=== PATIENT | male | born 1970 | race Caucasian/White ===

== ENCOUNTER 2018-03-21 18:43 | Emergency (ER) | payer SELFPAY ==
[~2018-03-21] VITALS: Ht 172.7 cm; Wt 64.9 kg
[2018-03-21 18:59] VITALS: BP 114/74
[2018-03-21] MEDS ORDERED: LIDOCAINE 2% 20 ML VIAL. ONE (19:24)
--- NOTE | 2018-03-21 19:24 | PHYS DOC ---
Past History Past Medical History: No Pertinent History Past Surgical History: No Surgical History Alcohol Use: None Drug Use: None Adult General Chief Complaint Chief Complaint: INSECT BITE HPI HPI 47-year-old male presents with concern for cellulitis and abscess on his left hip. He states he thought he had a bug bite about one week ago, that is just cannabinoid annoyance because his jeans rub against it. Yesterday, the patient noticed that the area started to have spreading redness and a performed. It is now 2-1/2 cm in diameter and there is a scab on the surface. He has not noticed any drainage. He is never had a skin infection in the past. No MRSA history. Denies fever or chills. Review of Systems Review of Systems Constitutional: Denies fever or chills [] Eyes: Denies change in visual acuity, redness, or eye pain [] HENT: Denies nasal congestion or sore throat [] Respiratory: Denies cough or shortness of breath [] Cardiovascular: No additional information not addressed in HPI [] GI: Denies abdominal pain, nausea, vomiting, bloody stools or diarrhea [] : Denies dysuria or hematuria [] Musculoskeletal: Denies back pain or joint pain [] Integument: Cellulitis and abscess left hip[] Neurologic: Denies headache, focal weakness or sensory changes [] Endocrine: Denies polyuria or polydipsia [] All other systems were reviewed and found to be within normal limits, except as documented in this note. Allergies Allergies Allergies Coded Allergies Type Severity Reaction Last Updated Verified No Known Drug Allergies 03/21/18 No Physical Exam Physical Exam Constitutional: Well developed, well nourished, no acute distress, non-toxic appearance. [] HENT: Normocephalic, atraumatic, bilateral external ears normal, oropharynx moist, no oral exudates, nose normal. [] Eyes: PERRLA, EOMI, conjunctiva normal, no discharge. [] Neck: Normal range of motion, no tenderness, supple, no stridor. [] Cardiovascular:Heart rate regular rhythm, no murmur [] Lungs & Thorax: Bilateral breath sounds clear to auscultation [] Abdomen: Bowel sounds normal, soft, no tenderness, no masses, no pulsatile masses. [] Skin: 2-1/2 cm cellulitis of the left anterior hip with small fluctuant center.[ ] Back: No tenderness, no CVA tenderness. [] Extremities: No tenderness, no cyanosis, no clubbing, ROM intact, no edema. [] Neurologic: Alert and oriented X 3, normal motor function, normal sensory function, no focal deficits noted. [] Psychologic: Affect normal, judgement normal, mood normal. [] Current Patient Data Vital Signs Vital Signs Date Time Temp Pulse Resp B/P (MAP) Pulse Ox O2 Delivery O2 Flow Rate FiO2 03/21/18 18:59 97.7 103 18 97 Room Air EKG EKG [] Radiology/Procedures Radiology/Procedures [] Course & Med Decision Making Course & Med Decision Making Pertinent Labs and Imaging studies reviewed. (See chart for details) I was able to squeeze the patient's abscess and had some spontaneous drainage. Wound culture was sent. We'll place him on Keflex for 7 days. First dose in the ED. He is stable for discharge. [] Dragon Disclaimer Dragon Disclaimer This electronic medical record was generated, in whole or in part, using a voice recognition dictation system. Departure Departure: Impression: Primary Impression: Cellulitis and abscess of left leg Disposition: HOME, SELF-CARE Condition: STABLE Referrals: PCP,NO (PCP) Patient Instructions: Cellulitis, Bsjp-[id number] Scripts Cephalexin (KEFLEX) 500 Mg Capsule 1 CAP PO TID for infection, #21 CAP Prov: LAVELL WHEELER DO 03/21/18 LAVELL WHEELER DO Mar 21, 2018 19:24
[2018-03-21] MEDS ORDERED: CEPH-264 PO (19:42)
[2018-03-21] MEDS ORDERED: CEPHALEXIN 250 MG CAPSULE PO ONE (19:45)
== END 2018-03-21 19:47 | disposition home or self-care (01) ==
LOC: ER 18:43
DX: L03.116 Cellulitis of left lower limb (principal); L02.416 Cutaneous abscess of left lower limb
CPT/HCPCS: 87070; 99283

== ENCOUNTER 2018-03-29 18:29 | Inpatient (IN) | payer SELFPAY ==
[~2018-03-29] VITALS: Ht 162.6 cm; Wt 60.4 kg
[~2018-03-29 18:29] MED LIST: CEPH-264 PO
--- NOTE | 2018-03-29 18:33 | ED.ADGEN ---
Past History Past Medical History: No Pertinent History, Asthma Past Surgical History: No Surgical History Alcohol Use: None Drug Use: None Adult General Chief Complaint Chief Complaint "....I was pati... getting....short of breath...maybe .... a cold... this .... morning... but.... now..............really bad....." [facility] HPI Patient is a 47 year old male who presents with above hx and complaints dyspnea and found to be hypoxic on ED check in. Patient has had episodes of asthma- like presentations in the past but none as severe as presentation tonight. Patient does smoke. No recent travel or specific ill contacts. 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 Patient on presentation having severe wheezing and nonproductive cough intercostal retractions and sats in the 80s on room air. Patient denies any history immunosuppression. Patient denies any current drug use but has remote history of polysubstance abuse. Review of Systems Review of Systems Constitutional: Complaints of fever and chills [] Eyes: Denies change in visual acuity, redness, or eye pain [] HENT: History of nasal congestion and drainage Respiratory: History of cough and wheezing Cardiovascular: No additional information not addressed in HPI [] GI: Denies abdominal pain, nausea, vomiting, bloody stools or diarrhea [] : Denies dysuria or hematuria [] Musculoskeletal: Denies back pain or joint pain [] Integument: Denies rash or skin lesions [] Neurologic: Denies headache, focal weakness or sensory changes [] Endocrine: Denies polyuria or polydipsia [] All other systems were reviewed and found to be within normal limits, except as documented in this note. Family History Family History Noncontributory Current Medications Current Medications Current Medications Medications (Trade) Dose Ordered Sig/Susanna Start Time Stop Time Status Last Admin Dose Admin Albuterol/ Ipratropium (Duoneb) 3 ml 1X ONCE 03/29/18 19:00 03/29/18 19:01 DC 03/29/18 19:23 3 ML Aspirin (Children'S Aspirin) 324 mg 1X ONCE 03/29/18 18:45 03/29/18 18:46 DC 03/29/18 19:06 324 MG Azithromycin (Zithromax) 500 mg 1X ONCE 03/29/18 19:00 03/29/18 19:01 DC 03/29/18 19:15 500 MG Enoxaparin Sodium (Lovenox 80mg Syringe) 64 mg 1X ONCE 03/29/18 19:30 03/29/18 19:33 DC 03/29/18 19:40 64 MG Lactated Ringer's 1,000 ml @ 100 mls/hr Q10H 03/29/18 18:35 03/30/18 04:34 DC 03/30/18 03:31 100 MLS/HR Magnesium Sulfate 50 ml @ 25 mls/hr 1X ONCE 03/29/18 18:45 03/29/18 20:44 DC 03/29/18 18:55 25 MLS/HR Methylprednisolone Sodium Succinate (SOLU-Medrol 125MG VIAL) 125 mg 1X ONCE 03/29/18 18:45 03/29/18 18:55 DC 03/29/18 18:44 125 MG Allergies Allergies Allergies Coded Allergies Type Severity Reaction Last Updated Verified I S O L A T I O N *CONTACT* Allergy Unknown 03/26/18 Yes NKMA Allergy Unknown 03/26/18 Yes Physical Exam Physical Exam Constitutional: Well developed, well nourished, in acute respiratory distress, non-toxic appearance. [] HENT: Normocephalic, atraumatic, bilateral external ears normal, oropharynx moist, mild injection of pharynx and postnasal drip, no oral exudates, nose swollen turbinates and clear rhinorrhea. Eyes: PERRLA, EOMI, conjunctiva normal, no discharge. [] Neck: Normal range of motion, no tenderness, supple, no stridor. [] Cardiovascular: Tachycardia Heart rate regular rhythm, no murmur [] Lungs & Thorax: Bilateral breath sounds equal at apexes with marked wheezing throughout on auscultation []does have intercostal retractions. Patient had tripod position. Abdomen: Bowel sounds normal, soft, no tenderness, no masses, no pulsatile masses. [] Skin: Warm, diaphoretic,, no erythema, no rash. [] Back: No tenderness, no CVA tenderness. [] Extremities: No tenderness, no cyanosis, no clubbing, ROM intact, no edema. [] Neurologic: Alert and oriented X 3, normal motor function, normal sensory function, no focal deficits noted. [] Psychologic: Affect anxious, judgement normal, mood normal. [] Current Patient Data Vital Signs Vital Signs Date Time Temp Pulse Resp B/P (MAP) Pulse Ox O2 Delivery O2 Flow Rate FiO2 03/29/18 19:30 108 27 116/75 (89) 95 Nasal Cannula 3.0 03/29/18 18:30 98.5 Lab Results Laboratory Tests Test 03/29/18 18:39 03/29/18 19:00 03/29/18 19:05 03/29/18 19:11 White Blood Count 13.1 x10^3/uL (4.0-11.0) H Red Blood Count 5.52 x10^6/uL (4.30-5.70) Hemoglobin 16.3 g/dL (13.0-17.5) Hematocrit 48.9 % (39.0-53.0) Mean Corpuscular Volume 89 fL (79-100) Mean Corpuscular Hemoglobin 30 pg (25-35) Mean Corpuscular Hemoglobin Concent 33 g/dL (31-37) Red Cell Distribution Width 14.7 % (11.5-14.5) H Platelet Count 248 x10^3/uL (140-400) Neutrophils (%) (Auto) 74 % (31-73) H Lymphocytes (%) (Auto) 13 % (24-48) L Monocytes (%) (Auto) 7 % (0-9) Eosinophils (%) (Auto) 7 % (0-3) H Basophils (%) (Auto) 0 % (0-3) Neutrophils # (Auto) 9.7 x10^3uL (1.8-7.7) H Lymphocytes # (Auto) 1.7 x10^3/uL (1.0-4.8) Monocytes # (Auto) 0.9 x10^3/uL (0.0-1.1) Eosinophils # (Auto) 0.8 x10^3/uL (0.0-0.7) H Basophils # (Auto) 0.0 x10^3/uL (0.0-0.2) Prothrombin Time 10.5 SEC (9.4-11.4) Prothrombin Time INR 1.1 (0.9-1.1) D-Dimer (Elizabeth) 0.60 mg/L (0.00-0.50) H Sodium Level 142 mmol/L (136-145) Potassium Level 3.7 mmol/L (3.5-5.1) Chloride Level 105 mmol/L (98-107) Carbon Dioxide Level 30 mmol/L (21-32) Anion Gap 7 (6-14) Blood Urea Nitrogen 17 mg/dL (8-26) Creatinine 1.0 mg/dL (0.7-1.3) Estimated GFR (Cockcroft-Gault) 80.4 Glucose Level 91 mg/dL (70-99) Calcium Level 9.0 mg/dL (8.5-10.1) Magnesium Level 2.2 mg/dL (1.8-2.4) Total Bilirubin 0.2 mg/dL (0.2-1.0) Direct Bilirubin 0.1 mg/dL (0.0-0.2) Aspartate Amino Transferase (AST) 12 U/L (15-37) L Alanine Aminotransferase (ALT) 20 U/L (16-63) Alkaline Phosphatase 40 U/L (46-116) L Creatine Kinase 73 U/L (39-308) Troponin I Quantitative < 0.017 ng/mL (0-0.055) WB-Uur-L-Type Natriuretic Peptide 11 pg/mL (0-124) Total Protein 8.2 g/dL (6.4-8.2) Albumin 3.8 g/dL (3.4-5.0) Lipase 181 U/L (73-393) Blood pH 7.36 (7.35-7.46) Blood Gas PCO2 44 mmHg (35-46) Blood Gas PO2 65 mmHg (80-100) L Blood Gas HCO3 25 mmol/L (21-28) Arterial Bld O2 Saturation (Calc) 91 % (92-99) L FiO2 32 % Group A Streptococcus Rapid Negative (NEGATIVE) Influenza Type A (Rapid) Negative (NEGATIVE) Influenza Type B (Rapid) Negative (NEGATIVE) EKG EKG My interpretation of EKG shows a sinus tachycardia 124 bpm. Does have some rightward axis. Some nonspecific anterior lateral strain pattern. No findings acute STEMI with contralateral changes. There is considerable baseline artifact due to respiratory distress.[] Radiology/Procedures Radiology/Procedures I interpretation of chest x-ray shows hyperexpansion. No significant loculation or infiltrate. See formal report when available[] Course & Med Decision Making Course & Med Decision Making Pertinent Labs and Imaging studies reviewed. (See chart for details). Discussed presentation, testing and treatment plan with Dr. Snider- Will admit for further treatment and evaluation. [] Final Impression Final Impression 1. Dyspnea- Hypoxia[]-Respiratory Failure 2. Asthma Exacerbation 3. Elevated D-dimer 0.60 4. Leukocytosis 13.1 5. Suspect Viral Syndrome Dragon Disclaimer Dragon Disclaimer This electronic medical record was generated, in whole or in part, using a voice recognition dictation system. Dragon Disclaimer This chart was dictated in whole or in part using Voice Recognition software in a busy, high-work load, and often noisy Emergency Department environment. It may contain unintended and wholly unrecognized errors or omissions. Discharge Summary Visit Information Final Diagnosis Problems Medical Problems: (1) Respiratory failure Status: Acute (2) Respiratory failure with hypoxia Status: Acute Brief Hospital Course Allergies Allergies Coded Allergies Type Severity Reaction Last Updated Verified I S O L A T I O N *CONTACT* Allergy Unknown 03/26/18 Yes NKMA Allergy Unknown 03/26/18 Yes Vital Signs Vital Signs Date Time Temp Pulse Resp B/P (MAP) Pulse Ox O2 Delivery O2 Flow Rate FiO2 03/29/18 19:30 108 27 116/75 (89) 95 Nasal Cannula 3.0 03/29/18 18:30 98.5 Lab Results Laboratory Tests Test 03/29/18 18:39 03/29/18 19:00 03/29/18 19:05 03/29/18 19:11 White Blood Count 13.1 x10^3/uL (4.0-11.0) Red Blood Count 5.52 x10^6/uL (4.30-5.70) Hemoglobin 16.3 g/dL (13.0-17.5) Hematocrit 48.9 % (39.0-53.0) Mean Corpuscular Volume 89 fL (79-100) Mean Corpuscular Hemoglobin 30 pg (25-35) Mean Corpuscular Hemoglobin Concent 33 g/dL (31-37) Red Cell Distribution Width 14.7 % (11.5-14.5) Platelet Count 248 x10^3/uL (140-400) Neutrophils (%) (Auto) 74 % (31-73) Lymphocytes (%) (Auto) 13 % (24-48) Monocytes (%) (Auto) 7 % (0-9) Eosinophils (%) (Auto) 7 % (0-3) Basophils (%) (Auto) 0 % (0-3) Neutrophils # (Auto) 9.7 x10^3uL (1.8-7.7) Lymphocytes # (Auto) 1.7 x10^3/uL (1.0-4.8) Monocytes # (Auto) 0.9 x10^3/uL (0.0-1.1) Eosinophils # (Auto) 0.8 x10^3/uL (0.0-0.7) Basophils # (Auto) 0.0 x10^3/uL (0.0-0.2) Prothrombin Time 10.5 SEC (9.4-11.4) Prothromb Time International Ratio 1.1 (0.9-1.1) D-Dimer (Elizabeth) 0.60 mg/L (0.00-0.50) Sodium Level 142 mmol/L (136-145) Potassium Level 3.7 mmol/L (3.5-5.1) Chloride Level 105 mmol/L (98-107) Carbon Dioxide Level 30 mmol/L (21-32) Anion Gap 7 (6-14) Blood Urea Nitrogen 17 mg/dL (8-26) Creatinine 1.0 mg/dL (0.7-1.3) Estimated GFR (Cockcroft-Gault) 80.4 Glucose Level 91 mg/dL (70-99) Calcium Level 9.0 mg/dL (8.5-10.1) Magnesium Level 2.2 mg/dL (1.8-2.4) Total Bilirubin 0.2 mg/dL (0.2-1.0) Direct Bilirubin 0.1 mg/dL (0.0-0.2) Aspartate Amino Transf (AST/SGOT) 12 U/L (15-37) Alanine Aminotransferase (ALT/SGPT) 20 U/L (16-63) Alkaline Phosphatase 40 U/L (46-116) Creatine Kinase 73 U/L (39-308) Troponin I Quantitative < 0.017 ng/mL (0-0.055) YT-Zif-Z-Type Natriuretic Peptide 11 pg/mL (0-124) Total Protein 8.2 g/dL (6.4-8.2) Albumin 3.8 g/dL (3.4-5.0) Lipase 181 U/L (73-393) Blood Gas pH 7.36 (7.35-7.46) Blood Gas PCO2 44 mmHg (35-46) Blood Gas PO2 65 mmHg (80-100) Blood Gas HCO3 25 mmol/L (21-28) Arterial Bld O2 Saturation (Calc) 91 % (92-99) FiO2 32 % Group A Streptococcus Rapid Negative (NEGATIVE) Influenza Type A (Rapid) Negative (NEGATIVE) Influenza Type B (Rapid) Negative (NEGATIVE) Brief Hospital Course Mr. Marinelli is a 47 old male who presented with acute respiratory failure with hypoxia. Admitted to - Status asthmaticus Discharge Information Condition at Discharge: Improved, Stable Dischare Medications Current Medications Albuterol/ Ipratropium (Duoneb) 3 ml STK-MED ONCE .ROUTE ; Start 03/29/18 at 18: 34; Stop 03/29/18 at 18:36; Status DC Aspirin (Children'S Aspirin) 324 mg 1X ONCE PO Last administered on 03/29/18at 19:06; Admin Dose 324 MG; Start 03/29/18 at 18:45; Stop 03/29/18 at 18:46; Status DC Lactated Ringer's 1,000 ml @ 100 mls/hr Q10H IV Last administered on 03/30/18at 03:31; Admin Dose 100 MLS/HR; Start 03/29/18 at 18:35; Stop 03/30/18 at 04:34; Status DC Albuterol/ Ipratropium (Duoneb) 3 ml 1X ONCE NEB Last administered on at 18:39; Admin Dose 3 ML; Start 03/29/18 at 18:45; Stop 03/29/18 at 18:46; Status DC Methylprednisolone Sodium Succinate (SOLU-Medrol 125MG VIAL) 125 mg STK-MED ONCE .ROUTE ; Start 03/29/18 at 18:39; Stop 03/29/18 at 18:41; Status DC Methylprednisolone Sodium Succinate (SOLU-Medrol 125MG VIAL) 125 mg 1X ONCE IV Last administered on 03/29/18at 18:44; Admin Dose 125 MG; Start 03/29/18 at 18:45 ; Stop 03/29/18 at 18:55; Status DC Azithromycin (Zithromax) 500 mg 1X ONCE PO Last administered on 03/29/18at 19:15 ; Admin Dose 500 MG; Start 03/29/18 at 19:00; Stop 03/29/18 at 19:01; Status DC Magnesium Sulfate 50 ml @ 25 mls/hr 1X ONCE IV Last administered on 03/29/18at 18:55; Admin Dose 25 MLS/HR; Start 03/29/18 at 18:45; Stop 03/29/18 at 20:44; Status DC Albuterol/ Ipratropium (Duoneb) 3 ml 1X ONCE NEB Last administered on at 19:23; Admin Dose 3 ML; Start 03/29/18 at 19:00; Stop 03/29/18 at 19:01; Status DC Enoxaparin Sodium (Lovenox 80mg Syringe) 64 mg 1X ONCE SQ Last administered on 03/29/18at 19:40; Admin Dose 64 MG; Start 03/29/18 at 19:30; Stop 03/29/18 at 19: 33; Status DC Active Scripts Active Keflex (Cephalexin) 500 Mg Capsule 1 Cap PO TID LADARIUS CARBONE MD Mar 29, 2018 18:32
[2018-03-29] MEDS ORDERED: IPRATRPIUM/ALBUTEROL 0.5/2.5MG 3 ML NEBU. ONE (18:34)
[2018-03-29] MEDS ORDERED: methylPREDNISolone SOD SUCC PF 125 MG/2 ML VIAL. ONE (18:39)
[2018-03-29] MEDS: IV RINGERS SOLUTION,LACTATED 1,000 ML IV SCH (18:43)
[2018-03-29] MEDS ORDERED: MAGNESIUM SULFATE 2GM 50 ML IV ONE (18:45)
[2018-03-29] MEDS ORDERED: methylPREDNISolone SOD SUCC PF 125 MG/2 ML VIAL. IV ONE (18:45)
[2018-03-29] MEDS ORDERED: IPRATRPIUM/ALBUTEROL 0.5/2.5MG 3 ML NEBU. NEB ONE ×2 (18:45→19:00)
[2018-03-29] MEDS ORDERED: ASPIRIN 81 MG TAB.CHEW PO ONE (18:45)
[2018-03-29 18:53] LABS: BASO % 0 % (0-3); EOS # 0.8 x10^3/uL (0.0-0.7); EOS % 7 % (0-3); HEMATOCRIT 48.9 % (39.0-53.0); HEMOGLOBIN 16.3 g/dL (13.0-17.5); LYMPH # 1.7 x10^3/uL (1.0-4.8); LYMPH % 13 % (24-48); MEAN CORPUSCULAR HEMOGLOBIN 30 pg (25-35); MEAN CORPUSCULAR HGB CONC 33 g/dL (31-37); MEAN CORPUSCULAR VOLUME 89 fL (79-100); MONO # 0.9 x10^3/uL (0.0-1.1); MONO % 7 % (0-9); NEUT # 9.7 x10^3uL (1.8-7.7); NEUT % 74 % (31-73); PLATELET COUNT 248 x10^3/uL (140-400); RED BLOOD COUNT 5.52 x10^6/uL (4.30-5.70); RED CELL DISTRIBUTION WIDTH 14.7 % (11.5-14.5); WHITE BLOOD COUNT 13.1 x10^3/uL (4.0-11.0)
[2018-03-29] MEDS ORDERED: AZITHROMYCIN 250 MG TABLET. PO ONE (19:00)
[2018-03-29 19:16] LABS: ALBUMIN 3.8 g/dL (3.4-5.0); DIRECT BILIRUBIN 0.1 mg/dL (0.0-0.2); GFR 80.4; MAGNESIUM 2.2 mg/dL (1.8-2.4); POTASSIUM 3.7 mmol/L (3.5-5.1); TOTAL BILIRUBIN 0.2 mg/dL (0.2-1.0); TOTAL PROTEIN 8.2 g/dL (6.4-8.2)
[2018-03-29 19:20] LABS: BGAS PH 7.36 (7.35-7.46)
[2018-03-29] MEDS ORDERED: ENOXAPARIN ** NOTE DOSE ** SYRINGE SQ ONE (19:30)
[2018-03-29 19:45] LABS: INFLUENZA A PATIENT NEGATIVE (NEGATIVE); INFLUENZA B PATIENT NEGATIVE (NEGATIVE)
[2018-03-29 21:50] VITALS: BP 120/71
--- NOTE | 2018-03-29 22:42 | RAD ---
PA and lateral chest. HISTORY: Dyspnea, cough, congestion PA and lateral views were taken of the chest. Heart is normal in size. There is mild hyperexpansion. There are no confluent infiltrates. There is no effusion. IMPRESSION: 1. Mild hyperexpansion. 2. No confluent infiltrates. Electronically signed by: Jaren Garcia MD (03/29/2018 10:37 PM) [facility]
[2018-03-29 23:48] LABS: BARBITURATES NEG (NEG); BENZODIAZEPINES NEG (NEG); CANNABINOIDS NEG (NEG); COCAINE NEG (NEG); METHADONE NEG (NEG); OPIATES NEG (NEG); PHENCYCLIDINE NEG (NEG)
[2018-03-29 23:49] LABS: AMPHETAMINE/METHAMPHETAMINE NEG (NEG)
[2018-03-29 23:55] LABS: BACTERIA,URINE 0 /HPF (0-FEW); BILIRUBIN,URINE NEG (NEG); CLARITY,URINE CLEAR; COLOR,URINE YELLOW; GLUCOSE,URINE NEG (NEG); NITRITE,URINE NEG (NEG); RBC,URINE 0 /HPF (0-2); SQUAMOUS EPITHELIAL CELL,UR OCC /LPF; UROBILINOGEN,URINE 0.2 mg/dL (0.2 mg/dL)
[2018-03-30] MEDS: IV RINGERS SOLUTION,LACTATED 1,000 ML IV SCH (03:31)
[2018-03-30] MEDS: IPRATRPIUM/ALBUTEROL 0.5/2.5MG 3 ML NEBU. NEB SCH ×5 (05:08→20:05)
[2018-03-30 05:49] VITALS: BP 93/43
[2018-03-30 06:46] VITALS: BP 106/60
[2018-03-30] MEDS: ASPIRIN 81 MG TAB.CHEW PO SCH (08:36)
[2018-03-30] MEDS: AZITHROMYCIN 250 MG TABLET. PO SCH (08:36)
[2018-03-30] MEDS: ENOXAPARIN ** NOTE DOSE ** SYRINGE SQ SCH ×2 (08:37→20:59)
[2018-03-30] MEDS ORDERED: methylPREDNISolone SOD SUCC PF 125 MG/2 ML VIAL. IV SCH (09:00)
[2018-03-30 11:00] VITALS: BP 130/70
[2018-03-30 14:04] LABS: THYROID STIM HORMONE (TSH) 1.652 uIU/mL (0.358-3.740)
[2018-03-30 15:00] VITALS: BP 119/56
[2018-03-30 19:52] VITALS: BP 122/64
[2018-03-30] MEDS: LACTOBACILLUS RHAMNOSUS GG 1 CAPSULE. PO SCH (20:59)
[2018-03-30] MEDS: methylPREDNISolone SOD SUCC PF 40 MG/ML VIAL. IV SCH (20:59)
[2018-03-30] MEDS: SMZ/TMP 800/160MG TABLET. PO SCH (20:59)
[2018-03-30 23:22] VITALS: BP 117/63
--- NOTE | 2018-03-30 23:26 | HP ---
ADMIT DATE: 03/29/2018 HISTORY OF PRESENT ILLNESS: The patient is a 47-year-old male patient who was seen in the Emergency Room with a complaint of worsening shortness of breath, cough with scanty whitish sputum. Did complain of chest tightness, but denied any chills, rigors or fever. He had also stuffy nose and a headache. He was admitted with bronchial asthma exacerbation, acute hypoxic respiratory failure, elevated D-dimer, leukocytosis and perhaps some viral syndrome. He was also found to have an abscess on the left gluteal area. He was admitted and was started on IV Solu-Medrol, and DuoNeb as well as azithromycin. PAST MEDICAL HISTORY: Significant for probably some bronchial asthma and allergic rhinitis. PAST SURGICAL HISTORY: Unremarkable. ALLERGIES: He has no known drug allergies. MEDICATIONS: Lvni-vvr-lbgbswj medication including pseudoephedrine, Mucinex, Flonase and albuterol. FAMILY HISTORY: His brother at age of 50 because of complication of diabetes, seizure and sepsis. He has 3 sisters with diabetes mellitus. His father at the age of 30 because of liver cirrhosis. His mother is still alive at the age of 72 and she is diabetic. SOCIAL HISTORY: He is single, has 3 daughters and one son. He uses a vaporizer. He stopped smoking. 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 REVIEW OF SYSTEMS: The patient denied any blurring of vision, cataract, glaucoma or macular degeneration. Denied any earache, tinnitus or sensorineural deafness. Denied any nosebleeds, stuffy nose or postnasal drip. Denied any sore throat, sore tongue, toothache, hoarseness of voice or difficulty swallowing. Denied any nausea, vomiting, diarrhea or constipation. Denied any hematemesis, melena or hematochezia. Denied any dysuria, frequency or hematuria. Did complain of shortness of breath and chest tightness, but no chest pain. Denied any chills, rigors or fever. PHYSICAL EXAMINATION: GENERAL: On arrival to the Emergency Room, he was clearly tachypneic, he was pale, but no jaundice, cyanosis, or thyromegaly. No jugular venous distension. No limb edema. VITAL SIGNS: His heart rate was 122, blood pressure was 144/80, temperature was 98, respiratory rate was 30 and oxygen saturation was 84% on room air that improved to 92% on 3 liters of oxygen. HEAD, EYES, EARS, NOSE AND THROAT: Showed normocephalic, atraumatic. NECK: Supple. HEART: Showed normal first and second heart sounds with no gallop, rub or murmur. CHEST: Shows central trachea, equal bilateral expansion with marked wheezing throughout, both lungs auscultation. He also does have intercostal retraction and was initially in tripod position. ABDOMEN: Distended, soft, nontender. NEUROLOGIC: He was awake, alert, responding appropriately. There is no motor or sensory deficit. He was anxious, tachypneic, tachycardic. LABORATORY DATA: His lab work in the Emergency Room showed a white cell count of 13,100, hemoglobin 16, hematocrit 48.9, MCV 89 and platelet count of 248,000 with normal manual differential. His blood gases showed a pH of 7.36, pCO2 of 44, pO2 of 65, bicarbonate was 25, and oxygen saturation was 91% on FiO2 of 32%. Serum sodium was 142, potassium 3.7, chloride 105, bicarbonate 30, anion gap of 7, BUN 17, creatinine 1, estimated GFR was 80 mL per minute, his glucose was 91, calcium was 9. Magnesium is 2.2. Total bilirubin, AST, ALT, alkaline phosphatase were normal. His total protein was 8.2, albumin was 3.8. His lipase was normal. His TSH was 1.652. His serum triglycerides were 58, total cholesterol 135, LDL cholesterol was 84, VLDL was 11, HDL cholesterol of 40 and ratio was 3. His prothrombin time was 10.5, INR of 1.1, aPTT was 0.6. Urinalysis was essentially unremarkable. Toxic screen was negative. His nasal screen for MRSA by PCR was positive and his influenza A and B were negative. Group A streptococcus rapid test was negative. His chest x-ray showed that he has mild hyperexpansion, no confluent infiltrate. ASSESSMENT AND PLAN: The patient was admitted with acute asthma exacerbation and acute hypoxic respiratory failure. He was started on steroids, bronchodilators. D-dimer was slightly elevated. He was started on Lovenox and will continue with steroids as well as inhalers and has for his abscess. He did grow methicillin-resistant Staphylococcus aureus and that is sensitive to Bactrim, so I will start him also on Bactrim-DS 1 tablet twice a day. I will check his CT scan of his maxillofacial area and we will decide on further management accordingly. MALIK HERNANDEZ MD DR: ELINOR/hiwot JOB#: [id number] / [id number]
--- NOTE | 2018-03-30 23:27 | RAD ---
Examination: CT head and maxillofacial without contrast History vascular congestion, headache COMPARISON: None available TECHNIQUE: Axial CT images of the head was performed without contrast. Axial CT images of the maxillofacial bones were performed without contrast. Coronal and sagittal reformats performed Exposure: One or more of the following individualized dose reduction techniques were utilized for this examination: 1. Automated exposure control 2. Adjustment of the mA and/or kV according to patient size 3. Use of iterative reconstruction technique FINDINGS: There is no evidence of midline shift. There is no acute intracranial bleed or extra-axial fluid collection identified. The vallejo-white matter differentiation is maintained.The visualized lateral ventricles, third ventricle, fourth ventricle appropriate for age. The basal cisterns are uneffaced. The mastoid air cells are clear. Moderate mucosal thickening identified in the right frontal sinus and left sphenoid sinus. Severe mucosal thickening and near complete opacification of the bilateral ethmoidal sinus , left greater than right. There is complete opacification of the right maxillary sinus. Mild mucosal thickening identified in the left maxillary sinus. The bilateral orbital globes appear intact. IMPRESSION: 1. Complete opacification of the right maxillary sinus and expansion of the right ostiomeatal complex with soft tissue density likely sinus disease. Moderate mucosal thickening identified in the bilateral ethmoidal sinuses, left sphenoid sinus and mild mucosal thickening identified in the left maxillary sinus likely sinus disease. 2. No acute intracranial findings. Electronically signed by: Shravan Taylor MD (03/30/2018 4:04 PM) [place] [id number]
--- NOTE | 2018-03-30 23:27 | PN ---
DATE: 03/30/2018 SUBJECTIVE: The patient is sitting slightly propped up in bed. He continued to complain of stuffiness of his nose and pain in that area; however, his chest tightness and cough is much improved. PHYSICAL EXAMINATION: GENERAL: When I examined him this afternoon, he looked well and was clearly in no apparent respiratory distress. No pallor, jaundice, cyanosis, or thyromegaly. No jugular venous distention. No limb edema. HEAD, EYES, EARS, NOSE AND THROAT: Normocephalic, atraumatic. NECK: Supple. HEART: Showed normal first and second heart sounds with no gallop, rub or murmur. CHEST: Showed central trachea, equal bilateral expansion, air entry, vesicular sounds, very few scattered rhonchi. I could not appreciate any crepitation. ABDOMEN: Distended, soft, nontender. NEUROLOGIC: He was grossly intact. His intake was 1615, no output was recorded. LABORATORY DATA: There is no lab work done this morning. PLAN: My plan is to continue with IV Solu-Medrol, change it to 40 mg IV every 8 hours, continue with nebulized treatments, continue with Bactrim and I will arrange for him to have a maxillofacial CT scan and we will decide on further management accordingly. MALIK HERNANDEZ MD DR: ELINOR/hiwot JOB#: [id number] / [id number]
[2018-03-31] MEDS: IPRATRPIUM/ALBUTEROL 0.5/2.5MG 3 ML NEBU. NEB SCH ×2 (05:25→10:05)
[2018-03-31] MEDS: methylPREDNISolone SOD SUCC PF 40 MG/ML VIAL. IV SCH ×2 (05:31→13:32)
[2018-03-31 06:09] VITALS: BP 142/67
[2018-03-31] MEDS: ENOXAPARIN ** NOTE DOSE ** SYRINGE SQ SCH (07:41)
[2018-03-31 07:54] LABS: HEMATOCRIT 46.1 % (39.0-53.0); HEMOGLOBIN 15.3 g/dL (13.0-17.5); RED BLOOD COUNT 5.19 x10^6/uL (4.30-5.70); RED CELL DISTRIBUTION WIDTH 14.8 % (11.5-14.5); WHITE BLOOD COUNT 15.3 x10^3/uL (4.0-11.0)
[2018-03-31 08:00] LABS: ALBUMIN 3.7 g/dL (3.4-5.0); ALBUMIN/GLOBULIN RATIO 0.8 (1.0-1.7); CALCIUM 8.8 mg/dL (8.5-10.1); GFR 80.4; POTASSIUM 4.6 mmol/L (3.5-5.1); TOTAL BILIRUBIN 0.3 mg/dL (0.2-1.0); TOTAL PROTEIN 8.2 g/dL (6.4-8.2)
[2018-03-31] MEDS: AZITHROMYCIN 250 MG TABLET. PO SCH (08:22)
[2018-03-31] MEDS: ASPIRIN 81 MG TAB.CHEW PO SCH (08:22)
[2018-03-31] MEDS: SMZ/TMP 800/160MG TABLET. PO SCH (08:22)
[2018-03-31] MEDS: LACTOBACILLUS RHAMNOSUS GG 1 CAPSULE. PO SCH (08:22)
[2018-03-31] MEDS ORDERED: PSEUDOEPHEDRINE ER 120 MG TABLET.ER. PO PRN (09:00)
[2018-03-31] MEDS ORDERED: MUPIROCIN 2% TOPICAL OINTMENT 22GM TUBE. TP SCH (09:00)
[2018-03-31] MEDS ORDERED: OXYMETAZOLINE 0.05% NASAL SPRAY 15ML BOTTLE. NS SCH (09:00)
[2018-03-31] MEDS ORDERED: ALBU2.5V14 NEB (15:08)
[2018-03-31] MEDS ORDERED: FLUT9.9S NS (15:08)
[2018-03-31] MEDS ORDERED: SULF1TAB24 PO (15:08)
[2018-03-31] MEDS ORDERED: PRED20TA PO (15:08)
--- NOTE | 2018-03-31 19:21 | DS ---
DATE OF DISCHARGE: 03/31/2018 HOSPITAL COURSE: The patient is a 47-year-old male patient who was admitted through the Emergency Room with increasing shortness of breath, chest tightness, cough with whitish sputum. He was admitted with acute hypoxic respiratory failure. His oxygen saturation was % on room air on arrival. From his presentation, he seems to have bronchial asthma and has also severe chronic sinusitis. His D-dimer was elevated; however, he declined the Doppler ultrasound and CT angio of the chest given the cost. We did treat him with tapering course of steroids, Bactrim, and azithromycin. He did well, but he continued to have nasal congestion and stuffiness because of chronic sinusitis. In fact, we did a CT scan of the maxillofacial without contrast, which showed that the patient has complete opacification of the right maxillary sinus with expansion of the right ostiomeatal complex with soft tissue density, likely sinus disease, has moderate mucosal thickening identified in the bilateral ethmoidal sinuses, mild left sphenoid sinus and mild mucosal thickening identified in the left maxillary sinus, likely sinus disease. PHYSICAL EXAMINATION: GENERAL: When I examined today, he looked well and was clearly in no apparent respiratory distress, pale, but no jaundice, cyanosis, or thyromegaly. No jugular venous distension. No limb edema. VITAL SIGNS: His heart rate was 74, blood pressure was 142/67, temperature was 97.7, respiratory rate was 16, and oxygen saturation was 95% on room air. HEAD, EYES, EARS, NOSE AND THROAT: Normocephalic, atraumatic. NECK: Supple. HEART: Showed normal first and second sounds. No gallop, rub or murmur. CHEST: Clear to auscultation. No crepitation or rhonchi. ABDOMEN: Distended, soft, nontender. NEUROLOGIC: He is awake, alert, responding appropriately. Cranial nerves intact. EXTREMITIES: He moves extremities without difficulty, ambulates without assistance or assistive devices. LABORATORY DATA: Showed a white cell count 15,300, hemoglobin 15, hematocrit 46, MCV 89 and platelet count 257,000. His serum sodium was 137, potassium 4.6, chloride 103, bicarbonate 25, anion gap of 9, BUN 14, creatinine 1, estimated GFR was 80 mL per minute, his glucose 132, calcium was 8.8. Total bilirubin, AST, ALT, alkaline phosphatase were normal. Total protein was 8.2, albumin 3.7. Serum triglycerides are 58. Total cholesterol 135, LDL was 84, VLDL was 11, HDL cholesterol was 40 and the ratio was 3. His TSH was 1.652. Urinalysis was unremarkable. Toxic screen was negative. His influenza A and B were negative and his nasal screen for MRSA PCR was positive. DISCHARGE MEDICATIONS: He was discharged home to continue on albuterol sulfate by nebulizer every 4 hours as needed, Flonase 2 sprays to each nostril once a day, prednisone tapering course, and sulfamethoxazole trimethoprim for Bactrim-DS 1 tablet twice a day for 10 days. FINAL DISCHARGE DIAGNOSES: 1. Acute severe asthma. 2. Acute hypoxic respiratory failure. 3. Chronic sinusitis. MALIK HERNANDEZ MD DR: ELINOR/hiwot JOB#: [id number] / [id number]
[2018-03-31] MEDS ORDERED: methylPREDNISolone SOD SUCC PF 40 MG/ML VIAL. IV SCH (22:00)
--- NOTE | 2018-04-01 11:35 | EKG ---
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
== END 2018-03-31 16:00 | disposition home or self-care (01) | DRG 189 ==
LOC: ER 18:29 → ICU 19:30
PROVIDERS: ADMIT Internal Medicine; ATTEND Internal Medicine
DX: J96.01 Acute respiratory failure with hypoxia (principal); L02.31 Cutaneous abscess of buttock; J45.901 Unspecified asthma with (acute) exacerbation; R79.1 Abnormal coagulation profile; Z83.3 Family history of diabetes mellitus; B95.62 Methicillin resistant Staphylococcus aureus infection as the cause of diseases classified elsewhere; J32.9 Chronic sinusitis, unspecified; D72.829 Elevated white blood cell count, unspecified; F17.210 Nicotine dependence, cigarettes, uncomplicated; Z79.899 Other long term (current) drug therapy
CPT/HCPCS: 36415; 70450; 70486; 71046; 80048; 80053; 80061; 80076; 80307; 81001; 82550; 82803; 83690; 83735; 83880; 84443; 84484; 85025; 85027; 85379; 85610; 87040; 87070; 87641; 87804; 87880; 93005; 94640; J0456; J1650; J2920; J2930; J3475; J7120; J7620

== ENCOUNTER 2018-07-25 13:51 | Emergency (ER) | payer SELFPAY ==
[~2018-07-25] VITALS: Ht 162.6 cm; Wt 62.6 kg
[~2018-07-25 13:51] MED LIST changes: +ALBU2.5V14 NEB; +FLUT9.9S NS; +PRED20TA PO; +SULF1TAB24 PO
[2018-07-25] MEDS ORDERED: MELO7.5T29 PO (14:58)
[2018-07-25] MEDS ORDERED: DOXY100T PO (14:58)
--- NOTE | 2018-07-25 14:59 | PHYS DOC ---
Past History Past Medical History: Asthma, MRSA Past Surgical History: No Surgical History Additional Smoking Information: VAPES Alcohol Use: None Drug Use: None Adult General Chief Complaint Chief Complaint: SKIN PROBLEM HPI HPI Patient is a 57-year-old male presents complaining of 2 skin lesions on his low er abdomen. They have been present for the past several days. Patient several months ago had to be admitted to NICU due to an infection just superior to that area. Patient does not recall which antibiotic he was placed on after discharge. He denies any fever or drainage from these 2 lesions. Palpation makes him hurt more. Pain is moderate in intensity.[] Review of Systems Review of Systems Constitutional: Denies fever or chills [] Eyes: Denies change in visual acuity, redness, or eye pain [] HENT: Denies nasal congestion or sore throat [] Respiratory: Denies cough or shortness of breath [] Cardiovascular: No chest pain or palpitations[] GI: Denies abdominal pain, nausea, vomiting, bloody stools or diarrhea [] : Denies dysuria or hematuria [] Musculoskeletal: Denies back pain or joint pain [] Integument: See history of present illness[] Neurologic: Denies headache, focal weakness or sensory changes [] Endocrine: Denies polyuria or polydipsia [] All other systems were reviewed and found to be within normal limits, except as documented in this note. Allergies Allergies Allergies Coded Allergies Type Severity Reaction Last Updated Verified I S O L A T I O N *CONTACT* Allergy Unknown 03/26/18 Yes NKMA Allergy Unknown 03/26/18 Yes Physical Exam Physical Exam Constitutional: Well developed, well nourished, no acute distress, non-toxic appearance. [] HENT: Normocephalic, atraumatic, bilateral external ears normal, oropharynx moist, no oral exudates, nose normal. [] Eyes: PERRLA, EOMI, conjunctiva normal, no discharge. [] Neck: Normal range of motion, no tenderness, supple, no stridor. [] Cardiovascular:Heart rate regular rhythm, no murmur [] Lungs & Thorax: Bilateral breath sounds clear to auscultation [] Abdomen: Bowel sounds normal, soft, no tenderness, no masses, no pulsatile masses. [] Skin: Warm, dry, 2 erythematous, indurated areas in the suprapubic region, l argest is 1 cm x 0.5 cm, on the left, on the right it is 0.5 x 0.5 cm. There is no drainage. No petechiae.[] Back: No tenderness, no CVA tenderness. [] Extremities: No tenderness, no cyanosis, no clubbing, ROM intact, no edema. [] Neurologic: Alert and oriented X 3, normal motor function, normal sensory function, no focal deficits noted. [] Psychologic: Affect normal, judgement normal, mood normal. [] Current Patient Data Vital Signs Vital Signs Date Time Temp Pulse Resp B/P (MAP) Pulse Ox O2 Delivery O2 Flow Rate FiO2 07/25/18 14:00 97.7 64 20 97 Room Air EKG EKG [] Radiology/Procedures Radiology/Procedures [] Course & Med Decision Making Course & Med Decision Making Pertinent Labs and Imaging studies reviewed. (See chart for details) Medical decision making: Patient with a history of MRSA infection, we will cover against this despite it being only cellulitis at this point. No evidence of sepsis, no evidence of a drainable abscess at this time.[] Dragon Disclaimer Dragon Disclaimer This electronic medical record was generated, in whole or in part, using a voice recognition dictation system. Departure Departure: Impression: Primary Impression: Cellulitis Disposition: HOME, SELF-CARE Condition: IMPROVED Referrals: PCPGIFTY (PCP) Patient Instructions: Cellulitis Additional Instructions: Follow-up with your regular doctor in 2 days. If you do not have regular doctor list of local primary care physicians we provided for you. Apply warm compresses to the area at least 4 times a day for 15 minutes at a time. Wash with soap and water. Return to the ER if worsening pain, fever of more than 101, or any other concerns. Scripts Meloxicam (MELOXICAM) 7.5 Mg Tablet 7.5 MG PO DAILY for PAIN, #20 TAB Prov: LYNNETTE HE DO 07/25/18 Doxycycline Hyclate (DOXYCYCLINE HYCLATE) 100 Mg Tablet 1 TAB PO BID for cellulitis, #20 TAB Prov: LYNNETTE HE DO 07/25/18 Problem Qualifiers Primary Impression: Cellulitis Site of cellulitis: trunk Site of cellulitis of trunk: abdominal wall Qualified Codes: L03.311 - Cellulitis of abdominal wall LYNNETTE HE DO Jul 25, 2018 14:59
[2018-07-25 15:00] VITALS: BP 124/68
== END 2018-07-25 15:01 | disposition home or self-care (01) ==
LOC: ER 13:51
DX: L03.311 Cellulitis of abdominal wall (principal); J45.909 Unspecified asthma, uncomplicated; F17.200 Nicotine dependence, unspecified, uncomplicated; Z86.14 Personal history of Methicillin resistant Staphylococcus aureus infection; Z91.041 Radiographic dye allergy status
CPT/HCPCS: 99283

== ENCOUNTER 2018-09-16 19:40 | Emergency (ER) | payer SELFPAY ==
[~2018-09-16] VITALS: Ht 165.1 cm; Wt 63.5 kg
[~2018-09-16 19:40] MED LIST changes: +DOXY100T PO; +MELO7.5T29 PO
[2018-09-16] MEDS ORDERED: IPRATROPIUM BROMIDE 0.5 MG/2.5 ML NEBU. NEB ONE (20:15)
[2018-09-16] MEDS ORDERED: ALBUTEROL SULFATE 2.5 MG/3 ML NEBU. NEB ONE (20:15)
--- NOTE | 2018-09-16 20:23 | RAD ---
INDICATION: Cough and congestion COMPARISON: March 29, 2018 FINDINGS: 2 view of chest obtained. Cardiomediastinal contour is similar to prior with mild prominence of pulmonary gregor. There is some flattening of the diaphragm bilaterally. No definite new region of focal airspace consolidation. IMPRESSION: 1. No definite new region of focal airspace consolidation. 2. There is some mild hyperexpansion with prominence of interstitial markings. Could be from strong inspiratory effort but would correlate with symptoms of chronic lung disease to ensure that this is not from asthma or emphysema. Electronically signed by: Maicol Walker MD (09/16/2018 8:21 PM) [facility]
[2018-09-16] MEDS ORDERED: SULF1TAB24 PO (20:55)
[2018-09-16] MEDS ORDERED: METH4TAB2 PO (20:55)
[2018-09-16] MEDS ORDERED: ALBU2.5V8 INH (20:55)
--- NOTE | 2018-09-16 20:55 | PHYS DOC ---
Past History Past Medical History: Asthma, MRSA Past Surgical History: No Surgical History Alcohol Use: None Drug Use: None Adult General Chief Complaint Chief Complaint: SHORTNESS OF BREATH [facility] HPI Patient is a 48-year-old male who presents with complaint of a few week history of cough and wheezing that has been waxing and waning in severity. He denies any fever. He does indicate that he is periodically productive of sputum. He also indicates that he has been having problems with boils on his buttocks as well as groin area and lower extremities for quite some time. He states that he is taken antibiotics for it on 2 occasions but they keep coming back. He denies having a primary care provider and states that he has not seen a specialist for this. He states that his cough and wheezing was earlier today where he was short of breath so the point where he was having difficulty speaking normally. He states that currently symptoms have improved. He states that he does have a nebulizer at home and has been using Combivent inhaler as well.[] Review of Systems Review of Systems Constitutional: Denies fever or chills [] Respiratory: Complains of cough, wheezing and shortness of breath [] Cardiovascular: No additional information not addressed in HPI [] Integument: Positive skin lesions [] Neurologic: Denies headache, focal weakness or sensory changes [] Current Medications Current Medications Current Medications Medications (Trade) Dose Ordered Sig/Susanna Start Time Stop Time Status Last Admin Dose Admin Albuterol Sulfate (Ventolin) 5 mg 1X ONCE 09/16/18 20:15 09/16/18 20:16 DC 09/16/18 20:31 5 MG Ipratropium [place] (Atrovent) 0.5 mg 1X ONCE 09/16/18 20:15 09/16/18 20:16 DC 09/16/18 20:31 0.5 MG Allergies Allergies Allergies Coded Allergies Type Severity Reaction Last Updated Verified I S O L A T I O N *CONTACT* Allergy Unknown 03/26/18 Yes NKMA Allergy Unknown 03/26/18 Yes Physical Exam Physical Exam Constitutional: Well developed, well nourished, no acute distress, non-toxic appearance. [] Neck: Normal range of motion, no tenderness, supple, no stridor. [] Cardiovascular:Heart rate regular rhythm, no murmur [] Lungs & Thorax: There is fairly good air movement with inspiratory and expiratory wheezes noted bilaterally to auscultation [] Skin: There are numerous small lesions to both buttocks they're in the process of healing, consistent with boils/folliculitis. [] Current Patient Data Vital Signs Vital Signs Date Time Temp Pulse Resp B/P (MAP) Pulse Ox O2 Delivery O2 Flow Rate FiO2 09/16/18 19:42 98.2 86 22 93 Room Air EKG EKG [] Radiology/Procedures Radiology/Procedures [] Impressions: PROCEDURE: CHEST PA & LATERAL INDICATION: Cough and congestion COMPARISON: March 29, 2018 FINDINGS: 2 view of chest obtained. Cardiomediastinal contour is similar to prior with mild prominence of pulmonary gregor. There is some flattening of the diaphragm bilaterally. No definite new region of focal airspace consolidation. IMPRESSION: 1. No definite new region of focal airspace consolidation. 2. There is some mild hyperexpansion with prominence of interstitial markings. Could be from strong inspiratory effort but would correlate with symptoms of chronic lung disease to ensure that this is not from asthma or emphysema. Electronically signed by: Maicol Walker MD (09/16/2018 8:21 PM) [facility] Course & Med Decision Making Course & Med Decision Making Pertinent Labs and Imaging studies reviewed. (See chart for details) [] Dragon Disclaimer Dragon Disclaimer This electronic medical record was generated, in whole or in part, using a voice recognition dictation system. Departure Departure: Impression: Primary Impression: Asthma exacerbation Additional Impression: Recurrent boils Disposition: 01 HOME, SELF-CARE Condition: STABLE Referrals: PCP,NO (PCP) Patient Instructions: Asthma, Adult, Folliculitis Scripts Albuterol Sulfate (PROVENTIL HFA INHALER) 6.7 Gm Hfa.aer.ad 2 PUFF INH PRN Q4HRS PRN for WHEEZING, #1 INHALER 1 Refill Prov: TOMY CANADA Jr. DO 09/16/18 Methylprednisolone (MEDROL) 4 Mg Tab.ds.pk 1 PKG PO UD for asthma, #1 PKG Prov: TOMY CANADA Jr. DO 09/16/18 Sulfamethoxazole/Trimethoprim (BACTRIM DS TABLET) 1 Each Tablet 1 TAB PO BID for infection, #20 TAB Prov: TOMY CANADA Jr. DO 09/16/18 Problem Qualifiers Primary Impression: Asthma exacerbation Asthma severity: unspecified severity Asthma persistence: unspecified Qualified Codes: J45.901 - Unspecified asthma with (acute) exacerbation TOMY CANADA Jr. DO Sep 16, 2018 20:55
[2018-09-16 21:15] VITALS: BP 118/64
== END 2018-09-16 21:44 | disposition home or self-care (01) ==
LOC: ER 19:40
DX: J45.901 Unspecified asthma with (acute) exacerbation (principal); L02.32 Furuncle of buttock; Z91.041 Radiographic dye allergy status; Z86.14 Personal history of Methicillin resistant Staphylococcus aureus infection
CPT/HCPCS: 71046; 94640; 99284; J7613; J7644

== ENCOUNTER 2019-01-12 13:38 | Observation (INO) | payer SELFPAY ==
[~2019-01-12] VITALS: Ht 162.6 cm; Wt 63.5 kg
[~2019-01-12 13:38] MED LIST changes: +ALBU2.5V8 INH; +METH4TAB2 PO
[2019-01-12 14:14] VITALS: BP 114/70
[2019-01-12] MEDS ORDERED: VANCOMYCIN PER PHARMACY MC PRN (14:45)
[2019-01-12 15:25] LABS: BASO # 0.1 x10^3/uL (0.0-0.2); BASO % 1 % (0-3); EOS # 0.4 x10^3/uL (0.0-0.7); EOS % 4 % (0-3); HEMATOCRIT 40.5 % (39.0-53.0); HEMOGLOBIN 13.2 g/dL (13.0-17.5); LYMPH # 1.7 x10^3/uL (1.0-4.8); LYMPH % 17 % (24-48); MEAN CORPUSCULAR HEMOGLOBIN 29 pg (25-35); MEAN CORPUSCULAR HGB CONC 33 g/dL (31-37); MEAN CORPUSCULAR VOLUME 90 fL (79-100); MONO # 0.8 x10^3/uL (0.0-1.1); MONO % 8 % (0-9); NEUT # 7.1 x10^3uL (1.8-7.7); NEUT % 71 % (31-73); PLATELET COUNT 235 x10^3/uL (140-400); RED BLOOD COUNT 4.49 x10^6/uL (4.30-5.70); RED CELL DISTRIBUTION WIDTH 13.7 % (11.5-14.5); WHITE BLOOD COUNT 10.1 x10^3/uL (4.0-11.0)
[2019-01-12 15:30] LABS: CALCIUM 8.2 mg/dL (8.5-10.1); GFR 80.1
[2019-01-12] MEDS ORDERED: ZOLPIDEM 5 MG TABLET. PO PRN (16:00)
[2019-01-12] MEDS ORDERED: VANCOMYCIN 1.5 GM in IV NORMAL SALINE 500ML 500 ML IV ONE (16:00)
[2019-01-12] MEDS ORDERED: ACET-704 PO (17:10)
[2019-01-12 19:35] VITALS: BP 107/67
[2019-01-12] MEDS: ACETAMINOPHEN/CODEINE 300/30MG TABLET PO PRN (20:20)
[2019-01-12 23:33] VITALS: BP 109/67
[2019-01-13] MEDS ORDERED: VANCOMYCIN 1 GM in IV NORMAL SALINE 250ML 250 ML IV SCH (05:00)
[2019-01-13] MEDS: ACETAMINOPHEN/CODEINE 300/30MG TABLET PO PRN ×2 (05:33→09:32)
[2019-01-13 06:16] VITALS: BP 98/62
[2019-01-13] MEDS ORDERED: LIDOCAINE 2%/EPI 1:100,000 20 ML VIAL. IJ ONE (09:30)
[2019-01-13] MEDS ORDERED: HYDROcodone/APAP 5/325MG 1 TAB TABLET PO PRN (10:15)
[2019-01-13 10:44] VITALS: BP 106/64
[2019-01-13] MEDS ORDERED: LINE600T15 PO (13:42)
--- NOTE | 2019-01-17 16:06 | PATHOLOGY ---
[facility] Accession Number: [id number] . 01 Material submitted: . thigh - LEFT THIGH BOIL BIOPSY. Modifiers: left . 01 Clinical history: . Biopsy/excision. . 02 Diagnosis: Segments of skin and subcutaneous tissue, left thigh excision: - Abscess. LBQ 01/17/2019 1110 Local . 02 Comment: There is no evidence of malignancy. (JPM/db; 01/17/2019) . 02 Electronically signed: . Roel Lucas MD, Pathologist NPI- [id number] . 01 Gross description: . Received in formalin labeled "Yves, Raheem, boil left side" are multiple fragments of haney-pink possible skin and underlying yellow-haney soft tissue measuring in aggregate 4.6 x 4.6 x 1.3 cm. Pullboat Engineer sections are submitted in cassette A1. ([facility] [place]; 01/13/2019) SY/[facility] 01/17/2019 1109 Local . 02 Pathologist provided ICD-10: L02.416 . 02 CPT . 683756 Specimen Comment: A courtesy copy of this report has been sent to [phone] Specimen Comment: Report sent to Performed at: 01 [facility] [address], [place] [id number] MD Oliver Harris MD Phone: [phone] Performed at: 02 [facility] [address] [place], [place] [id number] MD Roel Lucas MD Phone: [phone]
--- NOTE | 2019-01-22 17:43 | DS ---
DATE OF DISCHARGE: 01/13/2019 HOSPITAL COURSE: A 48-year-old male came in with severe abscesses to his left thigh. He had been attempted to be treated as an outpatient with oral antibiotics, but that did not work. He has gotten progressively worse swelling to the left thigh, was markedly inflamed, swollen and tender and as a result of this he was brought in for IV antibiotic therapy. Biopsies were also obtained to make sure there was no other abnormality noted to this situation. In any case, the patient made good progress. He tolerated the vancomycin. He was set up for outpatient vancomycin since he had failed outpatient oral antibiotic therapy. IMPRESSION: Abscesses to the left thigh with methicillin-resistant Staph aureus and sensitive to vancomycin, so that was the impression he will continue vancomycin as an outpatient and make further assessment on him as indicated. PAMELA IGNACIO MD DR: SANDRINE/hiwot JOB#: [id number] / [id number]
--- NOTE | 2019-01-27 21:21 | OP ---
DATE OF SURGERY: The patient had been admitted for abscesses to his left leg that were unresponsive to oral antibiotic therapy. DESCRIPTION OF PROCEDURE: The patient had ulcerations noted to that area of his left upper thigh. As a result of this, it was decided to go ahead and have a biopsy taken to make sure there was nothing else in there that might cause any particular problem and as a result of that, the patient was placed in the right lateral decubitus side after permission was given. The patient was told the possible complication of infection, loss of leg or life, sepsis and unsuccessful attempt. The area was then Betadine in the usual fashion, infiltrated with lidocaine and then an excision was made around the ulcerated area, which was taken off to surgery. Because of the infective nature, it was packed with sterile gauze. Wound care instructions were given to the patient. The patient tolerated the procedure well, as he was already here in the hospital, receiving IV antibiotic therapy for his MRSA infection. IMPRESSION: Ulceration of the left thigh, methicillin-resistant Staph aureus infection on the left thigh, biopsy of the left thigh. PLAN: As above. The patient will have packing and continue on vancomycin or similar medication to handle the MRSA infection. PAMELA IGNACIO MD DR: SANDRINE/hiwot JOB#: [id number] / [id number]
== END 2019-01-13 14:45 | disposition home or self-care (01) ==
LOC: 1 SOUTH 13:38 → INTOOBSV 13:38
PROVIDERS: ADMIT Family Medicine; ATTEND Family Medicine
DX: L02.416 Cutaneous abscess of left lower limb (principal); B95.62 Methicillin resistant Staphylococcus aureus infection as the cause of diseases classified elsewhere
CPT/HCPCS: 11406; 36415; 80048; 83605; 85025; 87040; 88304; 96365; 96366; G0378; G0379; J3370; J7040; J7050

== ENCOUNTER → 2019-10-28 | Outpatient (CLI) | payer OTHER ==
[~2019-10-28] MED LIST changes: +ACET-704 PO; +LINE600T15 PO
--- NOTE | 2019-10-28 12:09 | RAD ---
CT MAXILLOFACIAL WO CONTRAST DATE: 10/28/2019 8:30 AM INDICATION: Reason: CHRONIC SINUSITIS / Spl. Instructions: / History: . COMPARISON: None. TECHNIQUE: CT images of the paranasal sinuses were obtained without intravenous contrast. Coronal and sagittal reformatted images were performed at a separate workstation and reviewed. One or more of the following dose reduction techniques were utilized: Automated exposure control (AEC), Adjustment of mA and/or kV according to patient size, Use of iterative reconstruction technique such as ASiR, CT scan done according to ALARA and image gently/image wisely FINDINGS: Partial opacification of the right greater than left maxillary sinus with air-fluid levels and secretions. Near-complete opacification of the ethmoid sinuses. Near-complete opacification of right frontal sinus and opacification of both frontal recesses. Mild sphenoid sinus mucosal thickening. The osteomeatal units are obstructed. Nasal septum is deviated to the right. The visualized osseous structures are otherwise normal. The visualized orbits and globes are normal. The visualized brain parenchyma is normal in attenuation. IMPRESSION: Extensive paranasal sinus disease as above. Air-fluid levels in the right greater than left maxillary sinuses could represent acute sinusitis. Electronically signed by: Robert Vivar MD (10/28/2019 12:06 PM) [id number]
== END | disposition home or self-care (01) ==
LOC: CT 08:24
PROVIDERS: ATTEND Family Medicine
DX: J32.8 Other chronic sinusitis (principal); J34.2 Deviated nasal septum
CPT/HCPCS: 70486

== ENCOUNTER 2020-06-04 08:43 | Emergency (ER) | payer SELFPAY ==
[~2020-06-04] VITALS: Ht 162.6 cm; Wt 63.5 kg
--- NOTE | 2020-06-04 08:59 | PHYS DOC ---
Past History Past Medical History: Asthma, MRSA Past Surgical History: No Surgical History Alcohol Use: None Drug Use: None Adult General Chief Complaint Chief Complaint: ASTHMA HPI HPI Patient is a 49-year-old male presenting via POV for shortness of breath. This is an acute on chronic issue. He has known severe asthma, uses rescue inhaler only. Reports he has been on long-term steroid use p.o., reports taking proximately 20 mg daily for past year. He also takes azithromycin Wednesdays and Fridays. His primary care physician has been trying to wean him off steroids for past month and he has been taking 2.5 mg for past week, patient states prior attempts to taper off always causes his asthma to rebound. He reports approximately 4 days ago experiencing increased shortness of breath and wheezing. As such, he has taken 40 mg prednisone past 2 days in addition to using his rescue albuterol inhaler more than usual. Reports he has used it over 100 times in the past 7 days. Patient has no other maintenance inhalers for home use, sees a local free clinic for his care, does admit he was started on Xolair approximately 5 months ago for severe asthma by his associate professor of violin at [facility]. He has not followed up with his associate professor of violin since that time. He denies any other medical conditions, no other chronic meds, admits to smoking but de nies alcohol or illicit drug use. No fever, recent sick contacts or travel, chest pain, hemoptysis, abdominal pain, motor or sensory function changes, no neurologic deficits Review of Systems Review of Systems Fourteen body systems of review of systems have been reviewed. See HPI for pertinent positives and negative responses, other ritchie all other systems are negative, non-pertinent or non-contributory Allergies Allergies Allergies Coded Allergies Type Severity Reaction Last Updated Verified I S O L A T I O N *CONTACT* Allergy Unknown 03/26/18 Yes NKMA Allergy Unknown 03/26/18 Yes Physical Exam Physical Exam Constitutional: Well developed, well nourished, appears to be in respiratory distress struggling breathing speaking in few word sentences only HENT: Normocephalic, atraumatic, bilateral external ears normal, oropharynx moist with postnasal drip present, no oral exudates, nose normal. Eyes: PERRLA, EOMI, conjunctiva normal, no discharge. Neck: Normal range of motion, no tenderness, supple, no stridor. No meningeal signs Cardiovascular: Heart rate tachycardic, sinus rhythm, no murmurs rubs or gallops Lungs & Thorax: Respiratory distress with increased work of breathing and accessory muscle use noted in neck and abdomen, diffuse wheezing most prominent during exhalation phase globally Abdomen: Bowel sounds normal, soft, no tenderness, no masses, no pulsatile masses. Nonsurgical abdomen, no peritoneal signs Skin: Warm, dry, no erythema, no rash. Back: No tenderness, no CVA tenderness. Extremities: No tenderness, no cyanosis, no clubbing, ROM intact, no edema. Neurologic: Alert and oriented X 3, grossly normal motor & sensory function, no focal deficits noted. Psychologic: Anxious affect, judgement normal, mood normal. Current Patient Data Vital Signs Vital Signs Date Time Temp Pulse Resp B/P (MAP) Pulse Ox O2 Delivery O2 Flow Rate FiO2 06/04/20 08:47 196/108 (137) 86 Room Air Lab Results Laboratory Tests Test 06/04/20 08:46 White Blood Count 14.8 x10^3/uL Red Blood Count 5.47 x10^6/uL Hemoglobin 16.6 g/dL Hematocrit 49.7 % Mean Corpuscular Volume 91 fL Mean Corpuscular Hemoglobin 30 pg Mean Corpuscular Hemoglobin Concent 33 g/dL Red Cell Distribution Width 13.6 % Platelet Count 199 x10^3/uL Neutrophils (%) (Auto) 69 % Lymphocytes (%) (Auto) 14 % Monocytes (%) (Auto) 7 % Eosinophils (%) (Auto) 10 % Basophils (%) (Auto) 0 % Neutrophils # (Auto) 10.2 x10^3uL Lymphocytes # (Auto) 2.1 x10^3/uL Monocytes # (Auto) 1.1 x10^3/uL Eosinophils # (Auto) 1.5 x10^3/uL Basophils # (Auto) 0.1 x10^3/uL Sodium Level 142 mmol/L Potassium Level 4.0 mmol/L Chloride Level 107 mmol/L Carbon Dioxide Level 24 mmol/L Anion Gap 11 Blood Urea Nitrogen 11 mg/dL Creatinine 1.0 mg/dL Estimated GFR (Cockcroft-Gault) 79.8 BUN/Creatinine Ratio 11 Glucose Level 121 mg/dL Calcium Level 9.2 mg/dL Magnesium Level 2.1 mg/dL Total Bilirubin 0.5 mg/dL Aspartate Amino Transf (AST/SGOT) 17 U/L Alanine Aminotransferase (ALT/SGPT) 27 U/L Alkaline Phosphatase 159 U/L Troponin I Quantitative < 0.017 ng/mL [id number] Natriuretic Peptide 35 pg/mL Total Protein 7.5 g/dL Albumin 4.0 g/dL Albumin/Globulin Ratio 1.1 Current Medications Medications (Trade) Dose Ordered Sig/Susanna Route PRN Reason Start Time Stop Time Status Last Admin Dose Admin Sodium Chloride 1,000 ml @ 100 mls/hr Q10H IV 06/04/20 09:00 06/04/20 18:59 06/04/20 09:00 Albuterol Sulfate (Ventolin) 2.5 mg 1X ONCE NEB 06/04/20 09:00 06/04/20 09:27 DC Magnesium Sulfate 50 ml @ 25 mls/hr 1X ONCE IV 06/04/20 09:00 06/04/20 10:59 06/04/20 09:31 Albuterol/ Ipratropium (Duoneb) 3 ml 1X ONCE NEB 06/04/20 09:30 06/04/20 09:31 DC EKG EKG EKG ordered and interpreted by myself at 0939 hrs. as sinus rhythm at 95 bpm, unremarkable intervals, no axis deviation, no acute ischemic findings, no STEMI Radiology/Procedures Radiology/Procedures XR CHEST 1V History: Reason: SHORTNESS OF BREATH / Spl. Instructions: / History: Comparison: September 16, 2018 Findings: Patchy right medial basilar opacities obscuring the right heart border, likely within the right middle lobe. No pleural effusion. No pneumothorax. Normal heart size. Impression: 1. Patchy right middle lobe opacities, may represent atelectasis or consolidations including pneumonia. Recommend follow-up. Electronically signed by: Christopher Maria DO (06/04/2020 9:34 AM) [id number] Heart Score C/O Chest Pain: No HEART Score for Chest Pain: HEART Score for Chest Pain Response (Comments) Value History Slighlty/Non-Suspicious 0 ECG Normal 0 Age >45 - < 65 1 Risk Factors 1 or 2 Risk Factors 1 Troponin < Normal Limit 0 Total 2 Risk Factors: Risk Factors: DM, Current or recent (<one month) smoker, HTN, HLP, family history of CAD, obesity. Risk Scores: Risk Factors: DM, Current or recent (<one month) smoker, HTN, HLP, family history of CAD, obesity. Course & Med Decision Making Course & Med Decision Making Tachypneic, tachycardic, hypoxic and hypertensive on ER arrival. HPI and physical exam consistent with asthma exacerbation. IV access obtained. Duoneb treatment immediately started with supplemental oxygen increasing patient's O2 saturations greater than 90% on 2 L Comprehensive ER work-up obtained and concerning for right middle lobe pneumonia. Reviewed case with patient at length. Patient already took 40 mg prednisone today, I am deferring further steroid use and complicated patient. Joint decision to administer 2 g magnesium I discussed concern for pneumonia and joint decision to treat with antibiotics. Given ongoing azithromycin use, I will use this in conjunction with Rocephin for strep pneumo coverage Patient still requiring oxygen and has wheezing despite ER intervention noted above. I recommended transfer to [facility] for pulmonology evaluation given complex history of pulmonary disease I contacted [facility] and case was discussed, patient was accepted for transfer and admission under the care of Dr. Santos. I relayed plan of care so far, also disclosed we do not have rapid COVID-19 testing at our facility I updated patient and sister who is at bedside on proposed plan of care that included hospital transfer via EMS for admission, they were amenable. All questions and concerns addressed prior to ER transfer Critical Care Time This patient required critical care. Due to the fact that the patient required a significant amount of one on one physician - patient contact time, ordering and review of studies, arranging urgent treatment with development of a management plan, evaluation of patients response to treatment with frequent reassessments, and discussions with other providers this patient required 40 minutes of critical care time. Critical care time was indicated due to the inherent instability and/or potential for instability in this patient. The critical care time that is allocated to this patient is above and beyond any time spent on any other billable procedures performed on this patient. Dragon Disclaimer Dragon Disclaimer This electronic medical record was generated, in whole or in part, using a voice recognition dictation system. Departure Departure: Impression: Primary Impression: RML pneumonia Additional Impressions: Asthma Chronic steroid use Acute respiratory distress Disposition: 02 DC/TRF OTHER SHORT TERM HOS ([facility]) Admitting Physician: Other (DR SANTOS) Condition: STABLE Referrals: ANH FLOWERS MD (PCP) Problem Qualifiers KRISTOPHER PINEDA DO Jun 04, 2020 08:59
[2020-06-04] MEDS ORDERED: MAGNESIUM SULFATE 2GM 50 ML IV ONE (09:00)
[2020-06-04] MEDS ORDERED: ALBUTEROL SULFATE 2.5 MG/3 ML NEBU. NEB ONE (09:00)
[2020-06-04] MEDS ORDERED: IV NORMAL SALINE 1,000ML 1,000 ML IV SCH (09:00)
[2020-06-04 09:09] LABS: BASO # 0.1 x10^3/uL (0.0-0.2); BASO % 0 % (0-3); EOS # 1.5 x10^3/uL (0.0-0.7); EOS % 10 % (0-3); HEMATOCRIT 49.7 % (39.0-53.0); HEMOGLOBIN 16.6 g/dL (13.0-17.5); LYMPH # 2.1 x10^3/uL (1.0-4.8); LYMPH % 14 % (24-48); MEAN CORPUSCULAR HEMOGLOBIN 30 pg (25-35); MEAN CORPUSCULAR HGB CONC 33 g/dL (31-37); MEAN CORPUSCULAR VOLUME 91 fL (79-100); MONO # 1.1 x10^3/uL (0.0-1.1); MONO % 7 % (0-9); NEUT # 10.2 x10^3uL (1.8-7.7); NEUT % 69 % (31-73); PLATELET COUNT 199 x10^3/uL (140-400); RED BLOOD COUNT 5.47 x10^6/uL (4.30-5.70); RED CELL DISTRIBUTION WIDTH 13.6 % (11.5-14.5); WHITE BLOOD COUNT 14.8 x10^3/uL (4.0-11.0)
[2020-06-04 09:14] LABS: CALCIUM 9.2 mg/dL (8.5-10.1); GFR 79.8
[2020-06-04 09:27] LABS: ALBUMIN/GLOBULIN RATIO 1.1 (1.0-1.7); TOTAL BILIRUBIN 0.5 mg/dL (0.2-1.0); TOTAL PROTEIN 7.5 g/dL (6.4-8.2)
[2020-06-04] MEDS ORDERED: IPRATRPIUM/ALBUTEROL 0.5/2.5MG 3 ML NEBU. NEB ONE (09:30)
--- NOTE | 2020-06-04 09:37 | RAD ---
XR CHEST 1V History: Reason: SHORTNESS OF BREATH / Spl. Instructions: / History: Comparison: September 16, 2018 Findings: Patchy right medial basilar opacities obscuring the right heart border, likely within the right middl e lobe. No pleural effusion. No pneumothorax. Normal heart size. Impression: 1. Patchy right middle lobe opacities, may represent atelectasis or consolidations including pneumon ia. Recommend follow-up. Electronically signed by: Christopher Maria DO (06/04/2020 9:34 AM) [id number]
--- NOTE | 2020-06-04 10:19 | EKG ---
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
[2020-06-04] MEDS ORDERED: AZITHROMYCIN 500 MG in IV NORMAL SALINE 250ML 250 ML IV ONE (10:30)
[2020-06-04 10:57] VITALS: BP 121/70
[2020-06-04] MEDS ORDERED: IV NORMAL SALINE 50ML 50 ML ONE (11:30)
[2020-06-04] MEDS ORDERED: cefTRIAXone SODIUM 1 GM VIAL ONE (11:30)
[2020-06-04] MEDS ORDERED: IBUPROFEN 600 MG TABLET. PO ONE (11:30)
[2020-06-04] MEDS ORDERED: AZITHROMYCIN 500 MG VIAL. IV ONE (12:55)
[2020-06-04] MEDS ORDERED: IV NORMAL SALINE 250ML 250 ML ONE (12:55)
== END 2020-06-04 13:59 | disposition short-term general hospital (02) ==
LOC: ER 08:43
DX: J18.9 Pneumonia, unspecified organism (principal); J45.909 Unspecified asthma, uncomplicated; R06.03 Acute respiratory distress; Z79.52 Long term (current) use of systemic steroids; Z86.14 Personal history of Methicillin resistant Staphylococcus aureus infection; Z91.041 Radiographic dye allergy status; Z88.8 Allergy status to other drugs, medicaments and biological substances
CPT/HCPCS: 36415; 71045; 80053; 83735; 83880; 84484; 85025; 93005; 94640; 96365; 96366; 96367; 96368; 99291; J0456; J0696; J3475; J7030; J7050

== ENCOUNTER 2021-04-07 17:10 | Emergency (ER) | payer SELFPAY ==
[~2021-04-07] VITALS: Ht 162.6 cm; Wt 79.0 kg
[2021-04-07 17:32] VITALS: BP 135/84
[2021-04-07] MEDS ORDERED: SULF1TAB24 PO (17:40)
--- NOTE | 2021-04-07 17:40 | PHYS DOC ---
Past History Past Medical History: Asthma, MRSA Past Surgical History: No Surgical History Alcohol Use: None Drug Use: None Adult General Chief Complaint Chief Complaint: SKIN RASH/ABSCESS [facility] HPI Patient is a 50-year-old male presenting for left groin infection. Reports he has had this in the past. States he has had issues with abscesses and subsequent cellulitis in various folds of body such as axilla and groin. Reports last episode was 1 year ago. He has never had any surgical intervention performed but states he has always gone in prior to getting " really bad" and always resolved with p.o. antibiotics. States current skin infection started 48 hours ago and started developing white pustular head which concerned him for infection prompting him to come in for evaluation. Reports history of lung issues but no diagnosed history of hidradenitis suppurativa, admits he is sexually active but denies any concern for STDs specifically citing no penile discharge or testicular abnormalities. Review of Systems Review of Systems Fourteen body systems of review of systems have been reviewed. See HPI for pertinent positives and negative responses, other ritchie all other systems are ne gative, non-pertinent or non-contributory Allergies Allergies Allergies Coded Allergies Type Severity Reaction Last Updated Verified I S O L A T I O N *CONTACT* Allergy Unknown 03/26/18 Yes NKMA Allergy Unknown 03/26/18 Yes Physical Exam Physical Exam Constitutional: Well developed, well nourished, no acute distress, non-toxic appearance. HENT: Normocephalic, atraumatic, bilateral external ears normal, oropharynx moist, no oral exudates, nose normal. Eyes: PERRLA, EOMI, conjunctiva normal, no discharge. Neck: Normal range of motion, no tenderness, supple, no stridor. Cardiovascular: Heart rate regular per monitor Lungs & Thorax: No respiratory distress or accessory muscle use, bilateral chest rise Abdomen: Abdomen soft, non-tender, bowel sounds present in all quadrants, no guarding or rebound, nonacute abdomen. Skin: Warm, dry, no erythema, no rash. Patient has small abscess to left inguinal fold region that is pustular in nature 1 cm in diameter with 1.5 cm surrounding erythema without streaking, crepitus, or other findings concerning for penile/testicular involvement and/or other concerning findings consistent with necrotizing fasciitis/Hever's gangrene Back: No tenderness, no CVA tenderness. Extremities: No tenderness, no cyanosis, no clubbing, ROM intact, no edema. Neurologic: Alert and oriented X 3, grossly normal motor & sensory function, no focal deficits noted. Psychologic: Affect normal, judgement normal, mood normal. EKG EKG [] Radiology/Procedures Radiology/Procedures [] Heart Score C/O Chest Pain: No Risk Factors: Risk Factors: DM, Current or recent (<one month) smoker, HTN, HLP, family history of CAD, obesity. Risk Scores: Risk Factors: DM, Current or recent (<one month) smoker, HTN, HLP, family history of CAD, obesity. Course & Med Decision Making Course & Med Decision Making ABCs unremarkable HPI physical exam consistent with simple abscess to left inguinal fold. Joint decision to start Bactrim antibiotics with close PCP follow-up in outpatient setting. Strict return precautions discussed at length prior to ER departure Nadineon Disclaimer Dragon Disclaimer This electronic medical record was generated, in whole or in part, using a voice recognition dictation system. Departure Departure: Impression: Primary Impression: Abscess of groin, left Disposition: 01 HOME / SELF CARE / HOMELESS Condition: STABLE Referrals: ANH FLOWERS MD (PCP) Patient Instructions: Abscess Additional Instructions: You were evaluated in the Emergency Department for an abscess. You should soak the area in warm water for 20-30 minutes 3-4 times daily. Contact your doctor when the abscess comes to a head (looks like it is almost ready to pop open) and needs to be drained. Please keep the areas surrounding the abscess clean and dry. Take the antibiotics prescribed to you in full as directed. Please follow up with your primary care physician as needed. If you do not have a primary doctor, you can call your insurance company to find one. If you do not have insurance, you can go to the finance/registration department for more assistance. Return to the Emergency Department if you experience worsening pain, persistent fevers greater than 100.4, an increase in area of redness, increased tenderness/warmth around the abscess, foul smelling discharge from the abscess, Scripts Sulfamethoxazole/Trimethoprim (BACTRIM DS TABLET) 1 Each Tablet 1 TAB PO BID for ABSCESS for 5 Days, #10 TAB 0 Refills Prov: KRISTOPHER PINEDA DO 04/07/21 KRISTOPHER PINEDA DO Apr 07, 2021 17:40
[2021-04-07] MEDS ORDERED: SMZ/TMP 800/160MG TABLET. PO ONE (17:45)
== END 2021-04-07 18:04 | disposition home or self-care (01) ==
LOC: ER 17:10
DX: L02.214 Cutaneous abscess of groin (principal); J45.909 Unspecified asthma, uncomplicated
CPT/HCPCS: 99283-25

== ENCOUNTER 2021-05-04 12:33 | Emergency (ER) | payer SELFPAY ==
[~2021-05-04] VITALS: Ht 165.1 cm; Wt 77.3 kg
[2021-05-04 12:41] VITALS: BP 124/87
[2021-05-04] MEDS ORDERED: HYDR-2155 PO ×3 (12:50→13:13)
[2021-05-04] MEDS ORDERED: IBUP600T16 PO (12:52)
[2021-05-04] MEDS ORDERED: AMOX1TAB11 PO (12:52)
--- NOTE | 2021-05-04 12:52 | PHYS DOC ---
Past History Past Medical History: Asthma, MRSA Past Surgical History: No Surgical History Alcohol Use: None Drug Use: None Adult General Chief Complaint Chief Complaint: DENTAL PROBLEM HPI HPI Patient is a 50 year old male who presents with dental pain. The patient reports 2 day history of right maxillary dental pain, previous dental caries/broken tooth now increased pain. Denies fever, vomiting, trismus, difficulty breathing/swallowing. Denies significant past medical history. Review of Systems Review of Systems Constitutional: Denies fever or chills HENT: Reports dental pain Respiratory: Denies cough or shortness of breath Cardiovascular: Denies chest pain GI: Denies nausea, vomiting Musculoskeletal: Denies back pain or joint pain Integument: Denies rash Neurologic: Denies headache All other systems were reviewed and found to be within normal limits, except as documented in this note. Allergies Allergies Allergies Coded Allergies Type Severity Reaction Last Updated Verified I S O L A T I O N *CONTACT* Allergy Unknown 03/26/18 Yes NKMA Allergy Unknown 03/26/18 Yes Physical Exam Physical Exam Constitutional: Well developed, well nourished, no acute distress, non-toxic appearance. HENT: Normocephalic, atraumatic, bilateral external ears normal, oropharynx moist, poor dentition, right maxillary molar with dental decay, gingival swelling/erythema without abscess, no trismus, no significant cheek/jaw swelling. Eyes: conjunctiva normal Neck: no deformity Cardiovascular: no edema Lungs & Thorax: no respiratory distress Abdomen: nondistended Skin: no erythema Back: no deformity Extremities: no deformity Neurologic: Alert and oriented X 3 Psychologic: Affect normal Current Patient Data Vital Signs Vital Signs Date Time Temp Pulse Resp B/P (MAP) Pulse Ox O2 Delivery O2 Flow Rate FiO2 05/04/21 12:41 97.6 62 18 124/87 (99) 97 Room Air EKG EKG [] Radiology/Procedures Radiology/Procedures [] Heart Score C/O Chest Pain: No Risk Factors: Risk Factors: DM, Current or recent (<one month) smoker, HTN, HLP, family history of CAD, obesity. Risk Scores: Risk Factors: DM, Current or recent (<one month) smoker, HTN, HLP, family history of CAD, obesity. Course & Med Decision Making Course & Med Decision Making Pertinent Labs and Imaging studies reviewed. (See chart for details) Patient presents with dental pain. Vitals stable, no abscess, no red flags. Will give rx for Augmentin & ibuprofen, refer for dental follow up within 2-3 days. Return to ED for fever, trismus, difficulty breathing/swallowing, any otherwise worsening condition. Discharged home in stable condition. [] Dragon Disclaimer Dragon Disclaimer This electronic medical record was generated, in whole or in part, using a voice recognition dictation system. Departure Departure: Impression: Primary Impression: Disorder of teeth and supporting structures, unspecified Disposition: HOME / SELF CARE / HOMELESS Condition: STABLE Referrals: ANH FLOWERS MD (PCP) Patient Instructions: Dental Pain, [id number] Additional Instructions: You were seen in the emergency department today for dental pain. It is very important to see a dentist for this this week for treatment. In the meantime, you can take the prescribed antibiotic. Use ibuprofen for pain. It is also safe to take Tylenol [id number] while you are taking ibuprofen. Return to the emergency department for fever, difficulty opening your mouth, trouble br eathing or swallowing, any otherwise worsening condition. Scripts Amoxicillin/Potassium Clav (AMOX TR-K CLV 875-125 MG TAB) 1 Each Tablet 1 TAB PO BID for dental infection, #14 TAB Prov: DREW BERG MD 05/04/21 Ibuprofen (IBUPROFEN) 600 Mg Tablet 600 MG PO Q8HRS PRN for PAIN, #20 TAB Prov: DREW BERG MD 05/04/21 DREW BERG MD May 04, 2021 12:52
== END 2021-05-04 13:17 | disposition home or self-care (01) ==
LOC: ER 12:33
DX: K02.9 Dental caries, unspecified (principal); J45.909 Unspecified asthma, uncomplicated; Z88.8 Allergy status to other drugs, medicaments and biological substances
CPT/HCPCS: 99283